=== PATIENT | male | born 1960 | race Caucasian/White ===

== ENCOUNTER 2020-10-12 22:35 | Emergency (ER) | payer OTHER, SELFPAY ==
[2020-10-12 22:50] VITALS: BP 186/83; PULSE 84; RESP 18; TEMP 36.9; O2SAT 98
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
[2020-10-12] MEDS: BACITRACIN OINT 0.9 GM PCKT 1 APPLIC TOP (23:20)
[2020-10-12] MEDS: TET,DIPH,PERTUSS(ACELL),VAC/PF 0.5 ML SYRINGE IM (23:22)
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
[2020-10-12 23:41] VITALS: BP 137/64; PULSE 75; RESP 16; O2SAT 95
== END 2020-10-12 23:41 | disposition home or self-care (01) ==
PROVIDERS: Emergency Provider Emergency Medicine; PCP Family Medicine
DX: T20.10XA Burn of first degree of head, face, and neck, unspecified site, initial encounter (principal); X10.1XXA Contact with hot food, initial encounter; Z23 Encounter for immunization
CPT/HCPCS: 90471; 99283; 90715

== ENCOUNTER → 2022-05-10 06:57 | Outpatient (CLI) | payer OTHER, SELFPAY ==
[2022-05-10 19:41] LABS: COVID19 - ORCAS (NP or Nasal) Negative (Negative)
== END ==
PROVIDERS: PCP Family Medicine; Visit Provider Family Medicine
DX: Z20.822 Contact with and (suspected) exposure to COVID-19 (principal); Z01.812 Encounter for preprocedural laboratory examination
CPT/HCPCS: U0003